=== PATIENT | male | born 1965 | race Caucasian/White ===

== ENCOUNTER 2016-07-27 17:52 | Emergency (ER) | payer OTHER ==
[2016-07-27 17:59] VITALS: RESP 16
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
[2016-07-27 19:19] VITALS: BP 121/84; PULSE 101; TEMP 98.1; O2SAT 95
== END 2016-07-27 19:19 | disposition home or self-care (01) ==
LOC: EEVIPCON 17:52
DX: M75.41 Impingement syndrome of right shoulder (principal)
CPT/HCPCS: A4565

== ENCOUNTER 2016-08-03 09:37 | Observation (INO) | payer MEDICAID, OTHER ==
[2016-08-03 10:10] LABS: % IMMATURE GRANULYOCYTES 0.3 % (0.0-1.1); ABSOLUTE IMMATURE GRANULOCYTES 0.02 10^3/uL (0.00-0.10); ADD DIFF? NO; ADD MORPH? NO; ADD SCAN? NO; ATYPICAL LYMPHOCYTE FLAG 0 (0-99); FRAGMENT RBC FLAG 0 (0-99); HEMOGLOBIN 14.8 g/dL (13.7-17.5); LEFT SHIFT FLG 0 (0-99); LIPEMIA HEMOLYSIS FLAG 90 (0-99); MEAN CELL HEMOGLOBIN 31.1 pg (27.9-34.1); MEAN CELL HEMOGLOBIN CONCENTR. 34.4 g/dL (32.4-36.7); MEAN CELL VOLUME 90.3 fL (81.5-99.8); MEAN PLATELET VOLUME 10.5 fL (8.7-11.7); PLATELET CLUMPS FLAG 0 (0-99); PLATELET COUNT 217 10^3/uL (150-400); RED BLOOD CELL COUNT 4.76 10^6/uL (4.40-6.38); RED CELL DISTRIBUTION WIDTH 12.6 % (11.5-15.2)
[2016-08-03 10:26] LABS: ANION GAP 11 mEq/L (8-16); CALCIUM 8.2 mg/dL (8.5-10.4); CARBON DIOXIDE 23 mEq/l (22-31); CHLORIDE 100 mEq/L (97-110); CREATININE 1.5 mg/dL (0.7-1.3); GLOMERULAR FILTRATION RATE 49; GLUCOSE 58 mg/dL (70-100); POTASSIUM 4.2 mEq/L (3.5-5.2); SODIUM 134 mEq/L (134-144)
[2016-08-03] MEDS ORDERED: NS 1,000 ML IV ONE ×2 (10:33)
--- NOTE | 2016-08-03 10:33 | EDPHY ---
H & P Stated Complaint: cough/runny nose/vomiting/diarrhea Time Seen by Provider: 08/03/16 10:01 HPI/ROS: CHIEF COMPLAINT: Fever, cough, vomiting, diarrhea HISTORY OF PRESENT ILLNESS: The patient presents to the ED with a 3 day history of fever, cough, vomiting and diarrhea. While at work today the patient experienced an episode of syncope. The patient reports a past history of coronary artery disease with a stent placed approximately 3 years ago. The patient denies any active chest pain. The patient takes only a daily aspirin. The patient denies recent antibiotic use or travel outside the [facility]. The patient recently moved to [place] and has not yet established primary care. The patient complains of moderate to severe generalized weakness and fatigue from his symptoms. REVIEW OF SYSTEMS: A comprehensive 10 point review of systems is otherwise negative aside from elements mentioned in the history of present illness. Source: Patient Exam Limitations: No limitations - Personal History Current Tetanus/Diphtheria Vaccine: Yes - Medical/Surgical History Hx Asthma: No Hx Chronic Respiratory Disease: No Hx Diabetes: No Hx Cardiac Disease: Yes Hx Renal Disease: No Hx Cirrhosis: No Hx Alcoholism: No Hx HIV/AIDS: No Hx Splenectomy or Spleen Trauma: No Other PMH: cardiac stents - Social History Smoking Status: Never smoked - Physical Exam Exam: General Appearance: Alert, no distress Eyes: Pupils equal and round no pallor or injection ENT, Mouth: Dry mucous membranes Respiratory: There are no retractions, lungs are clear to auscultation Cardiovascular: Tachycardic Gastrointestinal: Abdomen is soft and nontender, no masses, bowel sounds normal Neurological: A&O, normal motor function, normal sensory exam, normal cranial nerves Skin: Warm and dry, no rashes Musculoskeletal: Neck is supple nontender Extremities: symmetrical, full range of motion Constitutional: Initial Vital Signs Temperature (C) 36.8 C 08/03/16 09:40 Heart Rate 119 H 08/03/16 09:40 Respiratory Rate 22 H 08/03/16 09:40 Blood Pressure 82/59 L 08/03/16 09:40 O2 Sat (%) 97 08/03/16 09:40 O2 Delivery Mode Room Air Allergies/Adverse Reactions: No Known Allergies Allergy (Verified 08/03/16 09:40) Home Medications: Medication Instructions Recorded [facility] 07/27/16 Medical Decision Making - Diagnostics EKG Interpretation: EKG: Complete interpretation has been separately recorded in the [facility] archive. Summary impression: Sinus rhythm Imaging: Imaging Impressions Chest X-Ray 08/03/16 10:04 Impression: Mild bronchitis. No pneumonia. ED Course/Re-evaluation: The patient presents to the ED with a flu-like illness. He has had symptoms for the past 3 days. His rapid flu test is negative. His chest x-ray demonstrates no evidence of an obvious infiltrate. He has market diarrhea and vomiting. The patient did report with mild hypotension secondary to hypovolemia. The patient is noted to be neurologically intact. The patient did received 2 L of normal saline in the ED. He is noted to have a slightly elevated creatinine of 1.5 with no prior baseline to compare to. While the patient does have a history of coronary artery disease he has no evidence of ischemia on his EKG today. Despite receiving 2 L of normal saline, the patient is still dehydrated with moderate dehydration. I do feel that he should be admitted to the hospital for observation this evening. Consultation is made with Dr. Villeda from the hospitalist service. Differential Diagnosis: Differential diagnosis considered includes asthma, bronchitis, pneumonia, renal insufficiency, influenza, arrhythmia - Data Points Laboratory Results: Laboratory Results 08/03/16 09:57 08/03/16 09:57 08/03/16 08/03/16 08/03/16 11:10 09:57 09:57 WBC RBC Hgb Hct MCV MCH MCHC RDW Plt Count MPV Neut % (Auto) Lymph % (Auto) [place] % (Auto) Eos % (Auto) Baso % (Auto) Nucleat RBC Rel Count Absolute Neuts (auto) Absolute Lymphs (auto) Absolute Monos (auto) Absolute Eos (auto) Absolute Basos (auto) Absolute Nucleated RBC Immature Gran % Immature Gran # VBG Lactic Acid 0.8 mmol/L mmol/L (0.7-2.1) Sodium 134 mEq/L mEq/L (134-144) Potassium 4.2 mEq/L mEq/L (3.5-5.2) Chloride 100 mEq/L mEq/L (97-110) Carbon Dioxide 23 mEq/l mEq/l (22-31) Anion Gap 11 mEq/L mEq/L (8-16) BUN 33 mg/dL H mg/dL (7-23) Creatinine 1.5 mg/dL H mg/dL (0.7-1.3) Estimated GFR 49 Glucose 58 mg/dL L mg/dL (70-100) Calcium 8.2 mg/dL L mg/dL (8.5-10.4) Influenza Typ A,B (DFA) NEGATIVE FOR FLU (NEGATIVE) 08/03/16 09:57 WBC 7.91 10^3/uL 10^3/uL (3.80-9.50) RBC 4.76 10^6/uL 10^6/uL (4.40-6.38) Hgb 14.8 g/dL g/dL (13.7-17.5) Hct 43.0 % % (40.0-51.0) MCV 90.3 fL fL (81.5-99.8) MCH 31.1 pg pg (27.9-34.1) MCHC 34.4 g/dL g/dL (32.4-36.7) RDW 12.6 % % (11.5-15.2) Plt Count 217 10^3/uL 10^3/uL (150-400) MPV 10.5 fL fL (8.7-11.7) Neut % (Auto) 69.5 % % (39.3-74.2) Lymph % (Auto) 16.9 % % (15.0-45.0) [place] % (Auto) 11.9 % % (4.5-13.0) Eos % (Auto) 0.4 % L % (0.6-7.6) Baso % (Auto) 1.0 % % (0.3-1.7) Nucleat RBC Rel Count 0.0 % % (0.0-0.2) Absolute Neuts (auto) 5.50 10^3/uL 10^3/uL (1.70-6.50) Absolute Lymphs (auto) 1.34 10^3/uL 10^3/uL (1.00-3.00) Absolute Monos (auto) 0.94 10^3/uL H 10^3/uL (0.30-0.80) Absolute Eos (auto) 0.03 10^3/uL 10^3/uL (0.03-0.40) Absolute Basos (auto) 0.08 10^3/uL 10^3/uL (0.02-0.10) Absolute Nucleated RBC 0.00 10^3/uL 10^3/uL (0-0.01) Immature Gran % 0.3 % % (0.0-1.1) Immature Gran # 0.02 10^3/uL 10^3/uL (0.00-0.10) VBG Lactic Acid Sodium Potassium Chloride Carbon Dioxide Anion Gap BUN Creatinine Estimated GFR Glucose Calcium Influenza Typ A,B (DFA) Medications Given: Discontinued Medications Sodium Chloride (Ns) 1,000 mls @ 0 mls/hr IV ONCE ONE PRN Reason: Wide Open Stop: 08/03/16 10:34 Last Admin: 08/03/16 10:34 Dose: 1,000 mls Sodium Chloride (Ns) 1,000 mls @ 0 mls/hr IV ONCE ONE PRN Reason: Wide Open Stop: 08/03/16 10:34 Last Admin: 08/03/16 10:38 Dose: 1,000 mls Departure - Departure Disposition: [facility] Inpatient Acute Clinical Impression: Dehydration, Viral syndrome, Renal insufficiency Condition: Good Referrals: NONE *PRIMARY CARE P,. [Primary Care Provider] - As per Instructions
--- NOTE | 2016-08-03 11:06 | CPEKG ---
Heart Rate: 95 RR Interval: 632 P-R Interval: 132 QRSD Interval: 82 QT Interval: 328 QTC Interval: 413 P Eugene: 55 QRS Eugene: 80 T Wave Eugene: 50 EKG Severity - OTHERWISE NORMAL ECG - EKG Impression: SINUS RHYTHM EKG Impression: LOW VOLTAGE IN FRONTAL LEADS Electronically Signed By: Tyrone Corey 03-Aug-2016 11:55:38
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
[2016-08-03] MEDS ORDERED: ACETAMINOPHEN 325 MG TAB PO PRN (16:09)
[2016-08-03] MEDS ORDERED: ONDANSETRON DISINTEGRATING 4 MG TAB PO PRN (16:09)
[2016-08-03] MEDS ORDERED: LORazepam 2 MG/ML INJ IVP PRN (16:10)
[2016-08-03] MEDS ORDERED: D5W 1/2 NS W/ 20 KCl/L 1,000 ML IV SCH (16:15)
[2016-08-03] MEDS ORDERED: TEMAZEPAM 15 MG CAP PO PRN (22:21)
[2016-08-04 05:01] VITALS: PULSE 77; O2SAT 97
[2016-08-04 05:19] LABS: ANION GAP 6 mEq/L (8-16); CALCIUM 7.8 mg/dL (8.5-10.4); CARBON DIOXIDE 21 mEq/l (22-31); CHLORIDE 108 mEq/L (97-110); CREATININE 0.9 mg/dL (0.7-1.3); GLOMERULAR FILTRATION RATE > 60; GLUCOSE 82 mg/dL (70-100); POTASSIUM 4.3 mEq/L (3.5-5.2); SODIUM 135 mEq/L (134-144)
[2016-08-04 07:47] VITALS: BP 102/66; RESP 16; TEMP 98.3
--- NOTE | 2016-08-04 11:31 | GDS ---
[f rep st] DISCHARGE SUMMARY DISCHARGE DIAGNOSES: 1. Influenza A. 2. Pleuritic chest pain most likely due to above, doubt pulmonary embolism given lack of tachycardi a or hypoxemia or other signs of clots. 3. Resolved diarrhea and vomiting. 4. Resolved acute kidney injury. 5. History of methamphetamine and cocaine abuse. HOSPITAL COURSE BY PROBLEM: Influenza A: The patient presented to the hospital with nausea, vomiti ng, and diarrhea, as well as general malaise and myalgias. A flu PCR was positive for influenza A. His initial workup revealed a creatinine of 1.5. He was treated with IV fluids, and on the day of discharge, his creatinine is 0.9. The patient has had a few episodes of emesis while in the hospital, one of which was described as polanco ving a small amount of blood. He denies any coffee-ground emesis. He has not been on NSAIDs. On day of discharge, the patient states he feels a lot better and would like to leave the hospital, which I think is reasonable given the fact that he is no longer febrile and maintaining adequate oxy gen saturations of 97% on room air. PHYSICAL EXAM: VITAL SIGNS: On day of discharge, blood pressure 102/66, pulse 77, respiratory rate 16, O2 saturation 97% on room air. Temperature afebrile. GENERAL: In no acute distress. HEART: S1, S2. LUNGS: Clear. ABDOMEN: Soft. EXTREMITIES: No edema. CHEST: There is tenderness to p alpation over the left chest wall. ABDOMEN: Soft, nontender, and nondistended. No guarding or bruce ound tenderness. Normoactive bowel sounds DIAGNOSTICS ON THIS HOSPITAL STAY: A chest x-ray done 08/03/2016 was negative for pneumonia. Tropo ivan was negative. DISCHARGE MEDICATIONS: Please refer to discharge medication reconciliation in [facility]. Below is a preliminary list. New medications on hospital discharge: Protonix 40 mg daily. Tylenol as needed. DISCHARGE INSTRUCTIONS: The patient will be discharged from the hospital where he was instructed to seek medical attention if his symptoms worsen. I also advised him of the dangers of cocaine and me thamphetamine use. /[id number]/MODL
[2016-08-04 11:42] LABS: HEMATOCRIT 37.7 % (40.0-51.0)
== END 2016-08-04 12:36 | disposition home or self-care (01) ==
LOC: F1N 12:45
PROVIDERS: ADMIT Family Medicine; ATTEND Family Medicine
DX: J11.1 Influenza due to unidentified influenza virus with other respiratory manifestations (principal); R07.81 Pleurodynia; F14.10 Cocaine abuse, uncomplicated; F15.10 Other stimulant abuse, uncomplicated; I25.10 Atherosclerotic heart disease of native coronary artery without angina pectoris; Z95.5 Presence of coronary angioplasty implant and graft; Z79.82 Long term (current) use of aspirin; I25.2 Old myocardial infarction
CPT/HCPCS: 71020; 93005; 96360; 99285; G0378; J2060